=== PATIENT | female | born 2000 | race Caucasian/White ===

== ENCOUNTER 2022-09-28 16:05 | Outpatient (CLI) | payer BC, SELFPAY ==
[2022-09-28 22:35] LABS: Erythrocyte SedimentationRate* 8 mm/hr (2-20)
== END 2022-09-28 16:06 | disposition home or self-care (01) ==
PROVIDERS: Visit Provider Nurse Practitioner Family
DX: R10.9 Unspecified abdominal pain (principal)
CPT/HCPCS: 80048; 85651

== ENCOUNTER 2022-10-01 02:10 | Emergency (ER) | payer BC, SELFPAY ==
[2022-10-01 02:17] VITALS: BP 135/85; PULSE 95; RESP 18; TEMP 36.8; O2SAT 99; BMI 33.3
[2022-10-01 03:06] VITALS: BP 100/80; BP 112/72; BP 116/69; PULSE 118; PULSE 83; PULSE 98
[2022-10-01 03:08] VITALS: BP 116/69; PULSE 83; RESP 18; TEMP 36.8; O2SAT 99
[2022-10-01 04:11] VITALS: BP 116/69; PULSE 83; RESP 18; TEMP 36.8
--- NOTE | 2022-10-01 05:04 | ED.SYNCOPE ---
HPI - Syncope General Chief Complaint: Syncope/Fainted Stated Complaint: passed out on dorm floor. Time Seen by Provider: 10/01/22 02:16 History of Present Illness HPI narrative: 21 yo young woman presenting to the ER after a syncopal event. And gotten up to urinate and apparently became lightheaded managed to sit on the floor. She thinks she passed out finding herself seated on the floor. No head injury sustained. Has been taking antibiotics for presumed pelvic infection. Looks like wet prep was negative. White count was mildly elevated. Was having menses at the time. Slightly nauseated now. The abdominal discomfort for which she was seen has faded though still slightly present. No chest pain. No fevers. No shortness of breath. No sense of palpitations or irregular heartbeats. No chest pain. No headache. Has apparently had light syncopal events with vaccinations before. No immediate family history of sudden cardiac /hypertrophic cardiomyopathy/dysrhythmias. Related Data Home Medications Medication Instructions Recorded Confirmed dextroamphetamine-amphetamine ER ea PO 09/28/22 09/28/22 20 mg 24hr capsule,extend release etonogestrel 0.12 mg-ethinyl vag ring vaginal 09/28/22 09/28/22 estradiol 0.015 mg/24 hr vaginal ring (NuvaRing) hydroxyzine HCl 10 mg tablet 10 mg PO 09/28/22 09/28/22 sertraline 100 mg tablet 150 mg PO 09/28/22 09/28/22 Previous Rx's Medication Instructions Recorded doxycycline hyclate 100 mg tablet 100 mg PO BID #28 tabs 09/28/22 metronidazole 500 mg tablet 500 mg PO BID #28 tabs 09/28/22 Allergies Allergy/AdvReac Type Severity Reaction Status Date / Time No Known Drug Allergies Allergy Verified 10/01/22 02:19 Review of Systems Status of ROS: Reports: 10 or more systems reviewed and unremarkable except as noted in History and below [facility] Medical History Abdominal pain Pelvic infection Pelvic pain Surgical History No significant past surgical history Social History Smoking Status: Never smoker Do you use any of these nicotine containing products: None Second hand tobacco smoke exposure: No How often do you have a drink containing alcohol: never How often do you have six or more drinks on one occasion: Never AUDIT-C Alcohol total score: 0 Non-prescribed substance use: denies use Exam Narrative: Exam Narrative: A pleasant. NAD. Of good energy. Face seem slightly flushed. Head is atraumatic. Neck is supple. Fully alert. Easily conversant. Cranial nerves 2-12 look to be intact;. PERRLA. Indeed extraocular movements are intact and without nystagmus. Oropharynx is a little sticky. Trace erythema posteriorly. There is no cervical lymphadenopathy. Neck is supple. Back is nontender. Lungs are clear to auscultation. Heart is initially with mildly elevated rate. Normal rhythm. No murmur rub or gallop identified. Abdomen is soft normoactive bowel sounds and mildly tender to palpation in the right mid abdomen. No peritoneal signs. No flank pain. Extremities are without edema. She is well-perfused. Full strength throughout. Const: Vital Signs, click to edit/add: Vital Signs - 24 hr 10/01/22 02:17 10/01/22 03:06 10/01/22 03:08 Temperature 98.2 F 98.2 F Pulse Rate [Right Pulse Oximeter] 95 83 Pulse Rate [orthos tatic lying Left P ulse Oximeter] 83 Pulse Rate [orthos tatic sitting Left Pulse Oximeter] 98 Pulse Rate [orthos tatic standing Lef t Pulse Oximeter] 118 H Respiratory Rate 18 18 Blood Pressure [Ri ght Upper Arm] 135/85 116/69 Blood Pressure [or thostatic lying Le ft Arm] 112/72 Blood Pressure [or thostatic sitting Left Arm] 100/80 Blood Pressure [or thostatic standing Left Arm] 116/69 Pulse Oximetry 99 99 Oxygen Delivery Me thod Room Air Room Air 10/01/22 04:11 Temperature 98.2 F Pulse Rate [Right Pulse Oximeter] 83 Pulse Rate [orthos tatic lying Left P ulse Oximeter] Pulse Rate [orthos tatic sitting Left Pulse Oximeter] Pulse Rate [orthos tatic standing Lef t Pulse Oximeter] Respiratory Rate 18 Blood Pressure [Ri ght Upper Arm] 116/69 Blood Pressure [or thostatic lying Le ft Arm] Blood Pressure [or thostatic sitting Left Arm] Blood Pressure [or thostatic standing Left Arm] Pulse Oximetry Oxygen Delivery Me thod Documenting provider has reviewed patient's vital signs: yes Course Vital Signs Vital signs: Initial Vital Signs Temperature 98.2 F 10/01/22 02:17 Temperature Source Temporal Artery Scan 10/01/22 02:17 Pulse Rate 95 10/01/22 02:17 Respiratory Rate 18 10/01/22 02:17 Blood Pressure 135/85 10/01/22 02:17 Blood Pressure Mean 101 10/01/22 02:17 Blood Pressure Position Sitting 10/01/22 02:17 Pulse Oximetry 99 10/01/22 02:17 Oxygen Delivery Method 10/01/22 02:17 Vital Signs Temperature 98.2 F 10/01/22 02:17 Pulse Rate 95 10/01/22 02:17 Respiratory Rate 18 10/01/22 02:17 Blood Pressure 135/85 10/01/22 02:17 Pulse Oximetry 99 10/01/22 02:17 Oxygen Delivery Method 10/01/22 02:17 Temperature 98.2 F 10/01/22 04:11 Pulse Rate 83 10/01/22 04:11 Respiratory Rate 18 10/01/22 04:11 Blood Pressure 116/69 10/01/22 04:11 Pulse Oximetry 99 10/01/22 03:08 Oxygen Delivery Method 10/01/22 03:08 MDM - Syncope MDM Narrative Medical decision making narrative: We discussed likely etiology to what sounds like a vasovagal/orthostatic event. We did do orthostatics here and was actually positive for pulse/rate elevation. I did offer IV hydration but she did ultimately feel she could manage fluids herself. I did review EKG which looked quite good as below. Monitored on quality assurance monitor body during time in the emergency department without event. We discussed further evaluation though I think given extenuating circumstances and timing this is more likely a vasovagal/orthostatic event and in process of shared decision making are deferring further workup. ECG Data Attestation: I personally reviewed and interpreted this ECG as follows: (Normal sinus rate of 87) Discharge Plan Discharge Clinical Impression: Orthostatic syncope Patient Disposition: Home, Self-Care Condition: Improved Additional Instructions: Focus on hydration. Over the next couple of days slow transitions. Be seen for increasing persistent abdominal pain, associated fever, chest pain, persistent lightheadedness, sense of irregular heartbeat. Prescriptions: No Action dextroamphetamine-amphetamine 20 mg capsule,extended release 24hr PO Label Comments: TAKE 1 CAPSULE BY MOUTH EVERY DAY hydroxyzine HCl 10 mg tablet 10 mg PO etonogestrel-ethinyl estradiol [NuvaRing] 0.12-0.015 mg/24 hr ring vaginal sertraline 100 mg tablet 150 mg PO metronidazole 500 mg tablet 500 mg PO BID Qty: 28 0RF doxycycline hyclate 100 mg tablet 100 mg PO BID Qty: 28 0RF Follow Up/Referrals: Provider,Not a Local [Primary Care Provider] - Stand Alone Forms: [facility] Info Instructions
== END 2022-10-01 04:12 | disposition home or self-care (01) ==
PROVIDERS: Emergency Provider Family Medicine
DX: I95.1 Orthostatic hypotension (principal)
CPT/HCPCS: 93005; 99283